=== PATIENT | male | born 1985 | race Caucasian/White ===

== ENCOUNTER 2021-05-25 00:26 | Inpatient (IN) | payer SELFPAY ==
[2021-05-25 00:47] VITALS: BP 164/91; PULSE 53; RESP 15; O2SAT 100
[2021-05-25 00:50] VITALS: BMI 21.2
--- NOTE | 2021-05-25 03:37 | PC.ADMIT ---
[address] [facility] Admission Note: The patient,Nixon Greenwood,36 y/o, was given written information regarding hospital policies, unit procedures and contact persons. Patient's smoking status: . Vital Signs - 8 hr 05/25/21 00:47 Pulse Rate 53 L Respiratory Rate 15 Blood Pressure 164/91 Pulse Oximetry 100 Patient arrives from [facility] where he was evaluated for suicidal ideation. Patient had an argument with his fianc? and threatened to shoot himself via text. Patient states they had an argument similar to this several months ago where he threatened to shoot himself and he was placed on a 96 hr hold at that time. Patient states he is not necessarily compliant with his meds. He also states he recently tried Meth and smokes marijuana. States he is an occasional drinker. Denies SI/HI, depression, a/v hallucinations upon assessment. Patient has dx of Bipolar. Skin assessment unremarkable.
[2021-05-25 06:00] VITALS: BP 120/78; PULSE 80; RESP 16; O2SAT 100
[2021-05-25] MEDS: nicotine 21 mg Patch 1 PATCH TRANSDERMA (09:12)
--- NOTE | 2021-05-25 10:50 | NPU.GN ---
[facility] Group Topic:Depression/ Anxiety Marvel General Mood of Group:Nixon did attend and participate in group. He was social and had good hygiene.
--- NOTE | 2021-05-25 12:22 | W.PM.NPUH&PS ---
Providers/Chief Complaint Admitting Physician: Jonn Tobias MD Chief Complaint: SI\Bi Polar HPI NPU History of Present Illness Nixon Greenwood is a 36 year old male who was admitted from an outside hospital with the following report: Is a 36-year-old male who presents to the emergency room department via friends [facility] with a report of suicidal threats. The patient describes that he had an altercation with his significant other, and he threatened to commit suicide by self-inflicted gunshot. The patient states that he now did this to get a rise out of her . The patient has a history of bipolar disorder, however describes some noncompliance with medications, as he is having periods of difficulty allocating housing, due to relationship turmoil. Urine drug screen was positive for cannabis and amphetamine He had 3 affidavits. Per text message patient sent to a friend I do not want to live anymore I will go ahead and put a bullet in my brain all night Above-named individual was under my care at [facility] emergency department on 05/22/2021. Mr. Marley he admitted that he made suicidal statements to be text messages to his significant other. in his statement he indicated he would commit suicide by gunshot. He also admitted to psychiatric medication noncompliance. Affidavit from his significant other: Jerrod was becoming mentally unstable and in the event he became suicidal feeling everyone was against him when I came home from much she was curled up in bed with the rifle. I do not feel that he will actually hurt himself but did not want to risk it. He has an appointment in 1 week with his doctor to get his meds adjusted. I want him home for [employer]. He just has paranoia to work through! I explained to him he just needs to take his meds.? He was admitted to the neuropsychiatry unit for definitive treatment of these problems. He says that he has been stressed out recently. 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 He felt like his was attacking him yesterday and he did not react well. He made threats to shoot himself. She found him curled up in a ball with a rifle. He says the rifle was near the bed. He denies actually having any intent of killing himself. He told the emergency room doctor that he was trying to scare her. He was in the psychiatric hospital about a year ago when he was having issues with his . She was living with a arnold at the time and they were dating. That did not settle well with him and they argued about it and he ended up in the hospital. He was started on Seroquel and Prozac. He thinks that the dose of Prozac was increased to 40 mg while he was there. His felt that that was very helpful. She also feels that the Seroquel at bedtime is helpful. Psychiatrist changed him from the Prozac to Vistaril saying that it would help balance his neurochemicals. The patient says he thought that that meant that the Vistaril was similar to the Prozac. His psychiatrist was out of town recently and he missed an appointment. He was short on his Seroquel and has been rationing it. Not taking it when he has been working hard and does not feel like he needs something to help him sleep. His became very upset when she found out about that. She feels like he has been doing significantly worse since he has not been taking the Seroquel every day. His childhood was good. He says that he was diagnosed with dyslexia as a child. There was a counselor that he thought he had ADHD but his father was the chief of outreach and education social worker and did not want that diagnosis. He dealt with the problem by keeping him very busy and involving him in many activities. He also made him work at early age which gave him a good work ethic. His father had depression and the patient feels like he would still be alive today if he had gotten treatment for his depression. The patient sometimes has difficulty with sleep. He has anxiety. He feels uncomfortable with crowds sometimes. He can also be the life of the green party and can control a crowd of people. Meds NPU Home Medications Medication Instructions Recorded Confirmed Last Taken Type hydroxyzine pamoate [Vistaril] 50 mg PO QID PRN 05/25/21 05/25/21 Unknown History quetiapine [Seroquel] 100 mg PO BEDTIME 05/25/21 05/25/21 05/23/21 History Allergies Allergy/AdvReac Type Severity Reaction Status Date / Time bee venom protein (honey bee) Allergy ALGY-Anaphy Verified 05/25/21 00:50 laxis Mental Status Exam MSE Comments: This is a 36-year-old appropriate weight male who appears his stated age. He is dressed in hospital scrubs and is in no acute distress. psychomotor activity is normal possibly a little increased. Speech is at a regular rate and rhythm, normal volume, good articulation, not pressured. Alert, oriented X3 Attention and concentration appear to be good. Memory is intact Mood is good, mildly stressed. Affect is euthymic. Thought process is logical and goal-directed. Thought content: Denies auditory and visual hallucinations. No delusions or paranoia are noted. No current suicidal ideation, and no homicidal ideation. Fund of knowledge is appears to be within normal limits. Insight and judgment appear to be fair. Impulse control is fair. Vitals/I&O/Wt Last Vital Signs Pulse 80 05/25/21 06:00 Resp 16 05/25/21 06:00 BP 120/78 05/25/21 06:00 Pulse Ox 100 05/25/21 06:00 Weight last 48 hrs Weight 77.111 kg A&P Assessment and plan (1) Depression: Status: Acute Qualifiers: Depression Type: major depressive disorder Major depression recurrence: recurrent Active/Remission status: currently active Major depression episode severity: severe (2) Anxiety: Status: Acute (3) Suicidal ideation: Status: Acute Additional A&P Information Is a 36-year-old male who was brought to the emergency room because he was making statements about wanting to kill himself with a rifle. Plan: 1. Start Prozac 20 mg in the morning and Seroquel 100 mg at bedtime 2. Continue every 15 minute checks for safety. 3. Encourage individual, group and milieu therapies. 4. Encourage sober living treatment after discharge at the highest level of care to which he is willing to commit. 5. We will monitor for safety for himself in the community prior to discharge. Involuntary Hold Information 96 Hour Hold: 96 Hour Involuntary Admission: Yes 96 Hour Hold Ending Date: 05/29/21 96 Hour Hold Ending Time: 00:38 Attestations NPU Medical Necessity Statement*: Inpatient hospitalization is medically necessary and the clinically appropriate intervention at this time. We will initiate medications and make changes as indicated. He will be in the hospital for over 2 midnights. Likely length of stay 4-6 days Coding Level of Care Code Acute Medical Laboratory Manager for Donn[place] Fwd Diagnoses Depression F32.A Depression Type: major depressive disorder Major depression recurrence: recurrent Active/Remission status: currently active Major depression episode severity: severe Anxiety F41.9 Suicidal ideation R45.851
[2021-05-25 14:00] VITALS: RESP 17
[2021-05-25] MEDS: quetiapine 100 mg Tablet PO (21:10)
[2021-05-25 22:00] VITALS: BP 130/69; PULSE 60; RESP 15; O2SAT 98
[2021-05-26 06:00] VITALS: BP 133/85; PULSE 85; RESP 15; O2SAT 100
[2021-05-26] MEDS: nicotine 21 mg Patch 1 PATCH TRANSDERMA (07:01)
[2021-05-26] MEDS: fluoxetine 20 mg Capsule PO (07:01)
--- NOTE | 2021-05-26 11:18 | NPU.GN ---
[facility] Group Topic:James Word Search General Mood of Group:Nixon did attend and participate in group today. He seems mentally stable and his hygiene is good.
[2021-05-26 13:42] VITALS: BP 142/91; PULSE 55; RESP 18; TEMP 36.8; O2SAT 100
--- NOTE | 2021-05-26 14:59 | P.NPUPN_ITS ---
Subjective NPU Subjective: Interval history: He says that he is doing well. He said he slept great last night with the Seroquel 100 mg. His mood has been good today. He denies any suicidal ideations. He is adamant that he will continue taking the medication and follow-up as advised. He already has an appointment to see a psychiatrist named Karine at [facility] in his hometown. Mental Status Exam MSE Comments: This is a 36-year-old appropriate weight male who appears his stated age. He is dressed in hospital scrubs and is in no acute distress. psychomotor activity is normal possibly a little increased. Speech is at a regular rate and rhythm, normal volume, good articulation, not pressured. Alert, oriented X3 Attention and concentration appear to be good. Memory is intact Mood is good, mildly stressed. Affect is euthymic. Thought process is logical and goal-directed. Thought content: Denies auditory and visual hallucinations. No delusions or paranoia are noted. No current suicidal ideation, and no homicidal ideation. Fund of knowledge is appears to be within normal limits. Insight and judgment appear to be fair. Impulse control is fair. Cognition: Patient Appearance: Appropriate Patient Orientation (long list): Person, Place, Time and Name Comprehension Ability: No Impairment Hallucination Type: None Delusion Description: Not Present Thought Process: Appropriate Affect: Affect Description: Appropriate and Calm Behavior: Patient Behavior: Appropriate and Cooperative Speech Pattern: Appropriate and Clear Vitals/I&O/Wt Last Vital Signs Temp 98.2 F 05/26/21 13:42 Pulse 55 L 05/26/21 13:42 Resp 18 05/26/21 13:42 BP 142/91 05/26/21 13:42 Pulse Ox 100 05/26/21 13:42 Weight last 48 hrs Weight 77.111 kg A&P Assessment and plan (1) Depression: Status: Acute Qualifiers: Depression Type: major depressive disorder Major depression recurrence: recurrent Active/Remission status: currently active Major depression episode severity: severe (2) Anxiety: Status: Acute (3) Suicidal ideation: Status: Acute Additional A&P Information Is a 36-year-old male who was brought to the emergency room because he was making statements about wanting to kill himself with a rifle. Plan: 1. Start Prozac 20 mg in the morning and Seroquel 100 mg at bedtime 2. Continue every 15 minute checks for safety. 3. Encourage individual, group and milieu therapies. 4. Encourage sober living treatment after discharge at the highest level of care to which he is willing to commit. 5. We will monitor for safety for himself in the community prior to discharge. Involuntary Hold Information 96 Hour Hold: 96 Hour Involuntary Admission: Yes 96 Hour Hold Ending Date: 05/29/21 96 Hour Hold Ending Time: 00:38 Attestations NPU Medical Necessity Statement*: Inpatient hospitalization is medically necessary and the clinically appropriate intervention at this time. We will initiate medications and make changes as indicated. Coding Level of Care Code Acute Olericulturist for Noe Rajan Diagnoses Depression F32.A Depression Type: major depressive disorder Major depression recurrence: recurrent Active/Remission status: currently active Major depression episode severity: severe Anxiety F41.9 Suicidal ideation R45.851
[2021-05-26 20:04] VITALS: BP 144/104; PULSE 77; RESP 16; O2SAT 99
[2021-05-26] MEDS: quetiapine 100 mg Tablet PO (21:27)
[2021-05-27 06:00] VITALS: BP 136/98; PULSE 87; RESP 18; O2SAT 95
--- NOTE | 2021-05-27 07:24 | W.PM.NPUDCS ---
Diagnoses at Discharge Discharge Diagnosis (1) Depression: Status: Acute Qualifiers: Depression Type: major depressive disorder Major depression recurrence: recurrent Active/Remission status: currently active Major depression episode severity: severe (2) Anxiety: Status: Acute (3) Suicidal ideation: Status: Acute Reason for Visit Reason for Visit: SI\Bi Polar Brief History: History of Present Illness Nixon Greenwood is a 36 year old male who was admitted from an outside hospital with the following report: Is a 36-year-old male who presents to the emergency room department via [facility] with a report of suicidal threats. The patient describes that he had an altercation with his significant other, and he threatened to commit suicide by self-inflicted gunshot. The patient states that he now did this to get a rise out of her . The patient has a history of bipolar disorder, however describes some noncompliance with medications, as he is having periods of difficulty allocating housing, due to relationship turmoil. Urine drug screen was positive for cannabis and amphetamine He had 3 affidavits. Per text message patient sent to a friend I do not want to live anymore I will go ahead and put a bullet in my brain all night Above-named individual was under my care at [facility] emergency department on 05/22/2021. Mr. Marley he admitted that he made suicidal statements to be text messages to his significant other. in his statement he indicated he would commit suicide by gunshot. He also admitted to psychiatric medication noncompliance. Affidavit from his significant other: Jerrod was becoming mentally unstable and in the event he became suicidal feeling everyone was against him when I came home from much she was curled up in bed with the rifle. I do not feel that he will actually hurt himself but did not want to risk it. He has an appointment in 1 week with his doctor to get his meds adjusted. I want him home for [employer]. He just has paranoia to work through! I explained to him he just needs to take his meds.? He was admitted to the neuropsychiatry unit for definitive treatment of these problems. He says that he has been stressed out recently. 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 He felt like his was attacking him yesterday and he did not react well. He made threats to shoot himself. She found him curled up in a ball with a rifle. He says the rifle was near the bed. He denies actually having any intent of killing himself. He told the emergency room doctor that he was trying to scare her. He was in the psychiatric hospital about a year ago when he was having issues with his . She was living with a arnold at the time and they were dating. That did not settle well with him and they argued about it and he ended up in the hospital. He was started on Seroquel and Prozac. He thinks that the dose of Prozac was increased to 40 mg while he was there. His felt that that was very helpful. She also feels that the Seroquel at bedtime is helpful. Psychiatrist changed him from the Prozac to Vistaril saying that it would help balance his neurochemicals. The patient says he thought that that meant that the Vistaril was similar to the Prozac. His psychiatrist was out of town recently and he missed an appointment. He was short on his Seroquel and has been rationing it. Not taking it when he has been working hard and does not feel like he needs something to help him sleep. His became very upset when she found out about that. She feels like he has been doing significantly worse since he has not been taking the Seroquel every day. His childhood was good. He says that he was diagnosed with dyslexia as a child. There was a counselor that he thought he had ADHD but his father was the chief of psychosocial rehabilitation counselor and did not want that diagnosis. He dealt with the problem by keeping him very busy and involving him in many activities. He also made him work at early age which gave him a good work ethic. His father had depression and the patient feels like he would still be alive today if he had gotten treatment for his depression. The patient sometimes has difficulty with sleep. He has anxiety. He feels uncomfortable with crowds sometimes. He can also be the life of the green party and can control a crowd of people. Hospital Course Hospital Course He slowly acclimated to the individual, group and milieu therapies provided. He was restarted on his Prozac 20 mg and Seroquel 100 mg at bedtime. he tolerated these doses and showed steady improvement during his stay. He was able to contract for safety outside hospital prior to discharge. During the hospitalization, patient had routine laboratory studies which were within normal limits except for few outliers. Additionally there was a general medical evaluation which was also within normal limits and revealed no new acute processes. Discharge Summary: At the time of discharge, lethality was denied. Mood and anxiety were well managed. Patient endorsed a plan to follow-up with the aftercare recommendations of the treatment team. Patient was evaluated and deemed to be absent credible lethality, and had achieved the maximum benefit from an inpatient hospitalization, so was discharged. Involuntary Hold Information 96 Hour Hold: 96 Hour Involuntary Admission: Yes 96 Hour Hold Ending Date: 05/29/21 96 Hour Hold Ending Time: 00:38 Mental Status Exam MSE Comments: This is a 36-year-old appropriate weight male who appears his stated age. He is dressed in hospital scrubs and is in no acute distress. psychomotor activity is normal possibly a little increased. Speech is at a regular rate and rhythm, normal volume, good articulation, not pressured. Alert, oriented X3 Attention and concentration appear to be good. Memory is intact Mood is good. Affect is euthymic. Thought process is logical and goal-directed. Thought content: Denies auditory and visual hallucinations. No delusions or paranoia are noted. No current suicidal ideation, and no homicidal ideation. Fund of knowledge is appears to be within normal limits. Insight and judgment appear to be fair. Impulse control is fair. Cognition: Patient Appearance: Appropriate Patient Orientation (long list): Person, Place, Time and Name Comprehension Ability: No Impairment Hallucination Type: None Delusion Description: Not Present Thought Process: Appropriate Affect: Affect Description: Appropriate Behavior: Patient Behavior: Appropriate Speech Pattern: Appropriate Discharge Data Vitals: Last Vital Signs Temp 98.2 F 05/26/21 13:42 Pulse 87 05/27/21 06:00 Resp 18 05/27/21 06:00 BP 136/98 05/27/21 06:00 Pulse Ox 95 05/27/21 06:00 Discharge Plan Discharge Patient Disposition: Home Condition: Stable Prescriptions: New fluoxetine 20 mg Capsule 20 mg PO DAILY 30 Days Qty: 30 RF: 0 Continued Vistaril 50 mg Capsule 50 mg PO QID PRN (Reason: Anxiety) 30 Days Qty: 30 RF: 0 Seroquel 100 mg Tablet 100 mg PO BEDTIME 30 Days Qty: 30 RF: 0 Discharge Orders: Discharge Order (Routine); Ordered 05/27/21 Ordered By: Jonn Tobias Referrals: [facility] [Other] - 06/15/21 3:00 pm Discharge Diet: Regular Discharge Activity: Resume usual activity Patient Instructions: Opioid Safety Discharge Attestations NPU Time Spent in Discharge Care*: less than 30 min Specific Discharge Activities: Specific discharge activities: educating patient, discussing with case packer/social workers/dc planners, documenting/other paperwork and evaluating patient/reviewing data Coding Level of Care Code Acute Chg FW DC note Diagnoses Depression F32.A Depression Type: major depressive disorder Major depression recurrence: recurrent Active/Remission status: currently active Major depression episode severity: severe Anxiety F41.9 Suicidal ideation R45.851
[2021-05-27] MEDS: OLANZapine 5 mg ODT PO (08:26)
[2021-05-27] MEDS: fluoxetine 20 mg Capsule PO (08:26)
[2021-05-27] MEDS: nicotine 21 mg Patch 1 PATCH TRANSDERMA (08:26)
[2021-05-27] MEDS: hyDROXYzine 25 mg Capsule 50 MG PO (08:26)
[2021-05-27 09:38] VITALS: BP 136/98; PULSE 87; RESP 18; O2SAT 95
--- NOTE | 2021-05-27 10:39 | NPU.GN ---
[facility] Group Topic:Crisis Plan, Triggers, Coping Mechanisms. General Mood of Group: Nixon did participate and attend group today. Nixon was social and seemed mentally stable today. Nixon had good hygiene as well.
== END 2021-05-27 14:32 | disposition home or self-care (01) | DRG 885 ==
PROVIDERS: Admitting Provider Psychiatry & Neurology Psychiatry; Visit Provider Psychiatry & Neurology Psychiatry
DX: F33.2 Major depressive disorder, recurrent severe without psychotic features (principal); R45.851 Suicidal ideations; Z91.14 Patient's other noncompliance with medication regimen; Z63.0 Problems in relationship with spouse or partner; R48.0 Dyslexia and alexia; F41.9 Anxiety disorder, unspecified; Z81.8 Family history of other mental and behavioral disorders
CPT/HCPCS: 90471; 90686; 97150; 97165